=== PATIENT | female | born 1970 | race American Indian/Alaskan Native ===

== ENCOUNTER 2018-01-14 10:38 | Emergency (ER) | payer SELFPAY ==
[2018-01-14 11:26] VITALS: BP 123/80
[2018-01-14 11:59] LABS: Basophils % (Auto) 0.7 % (0.0-1.8); Eosinophils # (Auto) 0.1 K/mm3 (0.0-0.4); Eosinophils % (Auto) 0.9 % (0.0-4.3); Hematocrit 39.4 % (30.3-42.9); Hemoglobin 12.9 gm/dl (10.1-14.3); Lymphocytes # (Auto) 1.8 K/mm3 (1.2-5.4); Lymphocytes % (Auto) 29.4 % (13.4-35.0); Mean Corpuscular HGB Conc 33 % (30-34); Mean Corpuscular Hemoglobin 31 pg (28-32); Mean Corpuscular Volume 95 fl (79-97); Monocytes # (Auto) 0.5 K/mm3 (0.0-0.8); Monocytes % (Auto) 8.2 % (0.0-7.3); Platelet Count 286 K/mm3 (140-440); Red Blood Count 4.15 M/mm3 (3.65-5.03); Red Cell Distribution Width 13.6 % (13.2-15.2)
[2018-01-14 12:12] LABS: Alanine Aminotransferase 9 units/L (7-56); Albumin 4.1 g/dL (3.9-5); BUN/Creatinine Ratio 19; Blood Urea Nitrogen 13 mg/dL (7-17); Calcium 8.7 mg/dL (8.4-10.2); Hemolysis Index 30
[2018-01-14 13:50] LABS: Bacteria,Urine 1+ /HPF (Negative); Bilirubin,Urine NEG (Negative); Blood,Urine LG (Negative); Color,Urine Yellow (Yellow); Mucus,Urine FEW /HPF; Nitrite,Urine NEG (Negative); Protein,Urine <15 mg/dL mg/dL (Negative); Urobilinogen,Urine < 2.0 mg/dL (<2.0); WBC,Urine < 1.0 /HPF (0.0-6.0)
[2018-01-14] MEDS ORDERED: ZOFRAN ODT PO ONE (14:04)
[2018-01-14] MEDS ORDERED: MOTRIN PO ONE (14:04)
--- NOTE | 2018-01-14 14:04 | Emergency Department Report ---
Blank Doc - Documentation Documentation: Patient is a 47-year-old black female who is having some right-sided flank pain. Patient states it started yesterday originally she was having bilateral discomfort but costovertebral on the right. Patient also has some nausea as well as some vaginal spotting that she states is not having enough to wear a pad. This could be hematuria as well. Patient will have laboratory studies urinalysis and a CT rule out stone ordered
[2018-01-14 15:47] LABS: HCG Qualitative,Urine Negative (Negative)
--- NOTE | 2018-01-14 16:00 | Emergency Department Report ---
ED Abdominal Pain HPI - General Chief Complaint: Abdominal Pain Stated Complaint: BILATERAL FLANK PAIN Time Seen by Provider: 01/14/18 13:56 Source: patient Mode of arrival: Ambulatory Limitations: No Limitations - History of Present Illness Initial Comments: Patient is a 47-year-old black female who is having some right-sided flank pain. Patient states it started yesterday originally she was having bilateral discomfort but costovertebral on the right. Patient also has some nausea as well as some vaginal spotting that she states is not having enough to wear a pad. This could be hematuria as well. Patient will have laboratory studies urinalysis and a CT rule out stone ordered Onset/Timin -: week(s) Location: R flank Radiation: none Migration to: no migration Severity: moderate Severity scale (0 -10): 5 Quality: aching Consistency: intermittent Improves With: nothing Worsens With: nothing Associated Symptoms: denies: nausea, vomiting, fever, chills - Related Data LMP (females 10-50): last week Previous Rx's Medication Instructions Recorded Last Taken Type Cephalexin [Keflex] 500 mg PO BID #14 capsule 01/14/18 Unknown Rx Ibuprofen [Motrin] 800 mg PO Q8HR PRN #30 tablet 01/14/18 Unknown Rx Allergies Allergy/AdvReac Type Severity Reaction Status Date / Time No Known Allergies Allergy Verified 01/14/18 11:19 ED Review of Systems ROS: Stated complaint: BILATERAL FLANK PAIN Other details as noted in HPI Constitutional: denies: chills, fever Eyes: denies: eye pain, eye discharge, vision change ENT: denies: ear pain, throat pain Respiratory: denies: cough, shortness of breath, wheezing Cardiovascular: denies: chest pain, palpitations Endocrine: no symptoms reported Gastrointestinal: denies: abdominal pain, nausea, diarrhea Genitourinary: denies: urgency, dysuria, discharge Musculoskeletal: denies: back pain, joint swelling, arthralgia Skin: denies: rash, lesions Neurological: denies: headache, weakness, paresthesias Psychiatric: denies: anxiety, depression Hematological/Lymphatic: denies: easy bleeding, easy bruising ED Past Medical Hx - Past Medical History Previous Medical History?: No - Surgical History Past Surgical History?: Yes Additional Surgical History: rotator cuff - Social History Smoking Status: Former Smoker Substance Use Type: None - Medications Home Medications: Home Medications Medication Instructions Recorded Confirmed Last Taken Type Cephalexin [Keflex] 500 mg PO BID #14 capsule 01/14/18 Unknown Rx Ibuprofen [Motrin] 800 mg PO Q8HR PRN #30 tablet 01/14/18 Unknown Rx ED Physical Exam - General Limitations: No Limitations General appearance: alert, in no apparent distress - Head Head exam: Present: atraumatic, normocephalic - Eye Eye exam: Present: normal appearance - ENT ENT exam: Present: mucous membranes moist - Neck Neck exam: Present: normal inspection, full ROM. Absent: tenderness, meningismus, lymphadenopathy, thyromegaly - Respiratory Respiratory exam: Present: normal lung sounds bilaterally. Absent: respiratory distress, wheezes, rhonchi, chest wall tenderness - Cardiovascular Cardiovascular Exam: Present: regular rate, normal rhythm. Absent: systolic murmur, diastolic murmur, rubs, gallop - GI/Abdominal GI/Abdominal exam: Present: soft, normal bowel sounds. Absent: distended, tenderness, guarding, rebound, rigid, organomegaly, mass, bruit, pulsatile mass , hernia - Rectal Rectal exam: Present: deferred - Extremities Exam Extremities exam: Present: normal inspection - Back Exam Back exam: Present: normal inspection. Absent: tenderness, CVA tenderness (R), CVA tenderness (L), muscle spasm, paraspinal tenderness, vertebral tenderness - Neurological Exam Neurological exam: Present: alert, oriented X3, CN II-XII intact, normal gait, reflexes normal - Psychiatric Psychiatric exam: Present: normal affect, normal mood - Skin Skin exam: Present: warm, dry, intact, normal color. Absent: rash ED Course Vital Signs 01/14/18 11:19 Temperature 97.8 F Pulse Rate 72 Respiratory 16 Rate Blood Pressure 123/80 O2 Sat by Pulse 100 Oximetry ED Medical Decision Making - Lab Data Result diagrams: 01/14/18 11:30 01/14/18 11:30 Laboratory Tests 01/14/18 01/14/18 01/14/18 11:30 11:30 12:58 WBC 6.0 RBC 4.15 Hgb 12.9 Hct 39.4 MCV 95 MCH 31 MCHC 33 RDW 13.6 Plt Count 286 Lymph % (Auto) 29.4 [place] % (Auto) 8.2 H Eos % (Auto) 0.9 Baso % (Auto) 0.7 Lymph # 1.8 [place] # 0.5 Eos # 0.1 Baso # 0.0 Seg Neutrophils % 60.8 Seg Neutrophils # 3.6 Sodium 140 Potassium 4.2 Chloride 101.4 Carbon Dioxide 25 Anion Gap 18 BUN 13 Creatinine 0.7 Estimated GFR > 60 BUN/Creatinine Ratio 19 Glucose 60 L Calcium 8.7 Total Bilirubin < 0.20 AST 13 ALT 9 Alkaline Phosphatase 84 Total Protein 6.9 Albumin 4.1 Albumin/Globulin Ratio 1.5 Urine Color Yellow Urine Turbidity Clear Urine pH 6.0 Ur Specific [place] 1.010 Urine Protein <15 mg/dl Urine Glucose (UA) Neg Urine Ketones Neg Urine Blood Lg Urine Nitrite Neg Urine Bilirubin Neg Urine Urobilinogen < 2.0 Ur Leukocyte Esterase Neg Urine WBC (Auto) < 1.0 Urine RBC (Auto) 2.0 U Epithel Cells (Auto) 1.0 Urine Bacteria (Auto) 1+ Urine Mucus Few Urine HCG, Qual 01/14/18 15:04 WBC RBC Hgb Hct MCV MCH MCHC RDW Plt Count Lymph % (Auto) [place] % (Auto) Eos % (Auto) Baso % (Auto) Lymph # [place] # Eos # Baso # Seg Neutrophils % Seg Neutrophils # Sodium Potassium Chloride Carbon Dioxide Anion Gap BUN Creatinine Estimated GFR BUN/Creatinine Ratio Glucose Calcium Total Bilirubin AST ALT Alkaline Phosphatase Total Protein Albumin Albumin/Globulin Ratio Urine Color Urine Turbidity Urine pH Ur Specific [place] Urine Protein Urine Glucose (UA) Urine Ketones Urine Blood Urine Nitrite Urine Bilirubin Urine Urobilinogen Ur Leukocyte Esterase Urine WBC (Auto) Urine RBC (Auto) U Epithel Cells (Auto) Urine Bacteria (Auto) Urine Mucus Urine HCG, Qual Negative - Radiology Data Radiology results: report reviewed, image reviewed normal abd and pelvis ct no acute findings - Medical Decision Making Patient is a 47-year-old black female who is having some right-sided flank pain. Patient states it started yesterday originally she was having bilateral discomfort but costovertebral on the right. Patient also has some nausea as well as some vaginal spotting that she states is not having enough to wear a pad. This could be hematuria as well. Patient will have laboratory studies urinalysis and a CT rule out stone ordered, patient is a 47-year-old - [place] female who presents for right flank pain 4 days there is no hematuria no fever chills CT abdomen and pelvis no renal stones marginal ovarian cyst CBC normal UA normal for her nausea no vomiting abdominal exam.si normal no rebound no bruit nor hernia, pt states urinary frequency urgency, plan: keflex 500 mg po bid x 7 days, ibuprofen prn pain, follow up with pcp in 2-3 days. Critical care attestation.: If time is entered above; I have spent that time in minutes in the direct care of this critically ill patient, excluding procedure time. ED Disposition Clinical Impression: Flank pain, Dysuria Disposition: TO HOME OR SELFCARE Is pt being admited?: No Does the pt Need Aspirin: No Condition: Good Instructions: Abdominal Pain (ED), Dysuria (ED), Flank Pain (ED) Prescriptions: Cephalexin [Keflex] 500 mg PO BID #14 capsule Ibuprofen [Motrin] 800 mg PO Q8HR PRN #30 tablet PRN Reason: pain fever Referrals: PRIMARY CARE,MD [Primary Care Provider] - 3-5 Days Forms: Work/School Release Form(ED) Time of Disposition: 17:33
--- NOTE | 2018-01-14 16:48 | Cat Scan Report ---
FINAL REPORT PROCEDURE: CT ABDOMEN PELVIS WO CON TECHNIQUE: Computerized axial tomography of the abdomen and pelvis was performed without intravenous contrast. This study is performed without intravascular contrast material and its sensitivity for abdominal and pelvic pathology, including neoplasms, inflammation, abscess, free fluid, thrombosis, arterial dissection and infarction, is reduced compared with a contrast enhanced study. DLP 713.63 mGy-cm. HISTORY: Right flank pain. COMPARISON: No prior studies are available for comparison. FINDINGS: Visualized lower thorax: 2 mm right lower lobe pulmonary nodule (image 1 series 2). Calcified right lower lobe pulmonary nodule. Calcified periesophageal lymph nodes. Liver: Normal size and attenuation. Spleen: Punctate splenic calcification. Gallbladder and biliary system: Normal. Pancreas: Normal. Adrenals: Normal. Kidneys: Normal. 2.5 mm calcification about the expected course of the right ureter felt to be vascular and outside the course of the right ureter (image 54 series 2). GI tract: Normal caliber air-filled appendix.. Lymph nodes and mesentery: Normal. Vasculature: Normal. Bladder: Normal. Reproductive organs: Normal. Peritoneum: Trace pelvic fluid. Musculoskeletal structures: L5-S1 disc space narrowing, osteophytes, and vacuum disc change. Small multilevel osteophytes. Other: None. IMPRESSION: No CT evidence of renal/ureteral stone or obstruction. Normal caliber appendix. Evidence of prior granulomatous disease. 2 mm right upper lobe pulmonary nodule. If patient is considered high risk consider dedicated thoracic imaging.
== END 2018-01-14 17:48 | disposition home or self-care (01) ==
LOC: ED 10:38
DX: R10.9 Unspecified abdominal pain (principal); R30.0 Dysuria; R11.0 Nausea; N93.9 Abnormal uterine and vaginal bleeding, unspecified; R31.9 Hematuria, unspecified; Z87.891 Personal history of nicotine dependence
CPT/HCPCS: 36415; 74176; 80053; 81001; 81025; 85025; Q0162